=== PATIENT | female | born 1955 | race Caucasian/White ===

== ENCOUNTER → 2016-11-26 | Outpatient (CLI) | payer BC ==
[~2016-11-26] MED LIST: AMIL5TAB15 PO; AMLO-114 PO; ANAS1TAB19 PO; ATEN50TA8 PO; CALC-51 PO; CARV6.252 PO; CLON0.1T12 PO; ESCI1TAB10 PO; LORA-741 PO; MULT-1027 PO; VALS320T2 PO
[2016-11-26 14:41] VITALS: BP 130/84; PULSE 68; TEMP 36.6; O2SAT 97
--- NOTE | 2016-11-26 16:18 | Radiation Oncology Follow-Up ---
Radiation Oncology Follow-Up Date of Visit November 26, 2016. Reason For Visit One-month follow-up and cancer survivorship care plan Radiation Completion Date 10/16/16 Diagnosis (1) Breast cancer Status: Acute Onset Date: 07/09/2016 Histology Subtype: lobular Stage: l (A) Permanent Comment: Abnormal right breast mammogram 07/09/2016 Status post core needle biopsy 07/23/2016 revealing invasive lobular carcinoma grade 2 Estrogen receptor positive, progesterone receptor negative, and HER-2/suzan negative Status post lumpectomy and sentinel lymph node biopsy 08/26/2016 Stage pT1a pN0M0 Status post completion of radiation therapy 10/16/2016 received 3850 cGy, utilizing accelerated partial breast irradiation. Last Edited By: Edyta Arroyo on Oct 26, 2016 17:10 History of Present Illness Ms. Narcisa Huff is a 61-year-old female who underwent a screening mammogram on 11/2016. This was compared to previous his images most right breast and listed from 12/24/2010. There was a subtle area of architectural distortion with punctate calcifications centrally projecting in the right upper outer quadrant. This was predominantly at the 9:30 or 10 o'clock position. Left breast was unremarkable. Additional imaging was recommended. Therefore on 07/20/2016 the patient underwent spot compression views of the upper outer right breast with tomosynthesis and targeted right breast ultrasound were performed. Again there was noted a focal area of architectural distortion in the upper outer aspect of the breast adjacent to 3 small calcifications. Ultrasound of the area of interest revealed no well-defined abnormalities. These findings however were felt to be suspicious and a core biopsy was recommended. On 07/23/2016 the patient underwent biopsies of the right breast at the 10 o' clock position. The biopsies were of the area with and without calcifications. Both biopsies confirmed an invasive lobular carcinoma classic type, grade 2. The lesion was strongly ER positive, [place] negative and HER-2/suzan negative. Accession #: [id number]. The patient was seen by Dr. Winston for surgical evaluation and discussion. She recommended bilateral breast MRIs which were performed on 08/19/2016. In the left breast there were heterogeneous fibroglandular tissues with no suspicious mass or masslike enhancing lesions. There was no lymphadenopathy, no skin thickening and no nipple retraction noted. In the right breast there was a 0.4 x 0.3 x 0.7 cm linear non-mass like enhancement and mild architectural distortion at the site of the biopsy marker at the 9:00 middle depth position. This corresponded with the site of prior biopsy. There were no other masses or jej-vqbh-nwlm enhancement seen with no lymphadenopathy, skin thickening or nipple retraction appreciated. No suspicious findings were noted outside of the breast. Patient met with Dr. Winston to discuss surgical treatment options. The patient agreed to proceed with a breast conserving therapy. Therefore on 08/26/2016 the patient underwent a right needle localized lumpectomy and sentinel node biopsy with injection of lymphazurin blue dye for sentinel lymph node mapping. Histologic evaluation confirmed residual invasive lobular carcinoma, classic type, grade 2 measuring 0.1 cm in size. This was 1.6 cm from the nearest medial margin. Three sentinel lymph nodes were identified and all were negative confirmed by keratin immunohistochemistry. Final AJCC staging was pT1a pN0(sn-) ER positive, NJ negative and HER-2/suzan negative. Accession #: [id number]. Patient is scheduled to see Dr. Joni Gillis on September 24 to discuss the role of adjuvant antiestrogen therapy. We were asked to see the patient today to review with her the adjuvant radiation treatment options. It is for this reason the patient is seen in referral. She underwent a CT simulation was found to be a candidate for accelerated partial breast irradiation. Treatment was completed 10/16/2016. She received 3850 cGy. Interim History She's been doing well over this past month. She denies any changes to her breast. She is noted no masses or tenderness and no change of the axilla. She had minimal skin irritation following the completion of treatment. She was seen by Dr. Gillis and is now started anastrozole. She denies hot flashes. She has no problems with joint pain. She does note that the medication causes her to have somnolence. She takes this at night and helps her to sleep. Allergies Coded Allergies: Lisinopril (Verified Allergy, Intermediate, Unknown , 09/22/16) Home Medications Scheduled Amiloride Hcl (Amiloride Hcl), 5 MG PO DAILY Amlodipine (Norvasc), 10 MG PO DAILY Anastrozole (Arimidex), 1 TAB PO DAILY Atenolol (Tenormin), 50 MG PO BID Calcium Carbonate-Vitamin D (Calcium), 1 TAB PO BID Carvedilol (Coreg), 1 TAB PO BID Clonidine Hcl (Catapres), 1 TAB PO BID Escitalopram Oxalate (Lexapro), 1.5 TABS PO DAILY Multiple Vitamin (Multi Vitamin), 1 TAB PO DAILY Valsartan/Hctz (Diovan Hct 320MG/25MG), 1 TAB PO DAILY Scheduled PRN Lorazepam (Ativan), 0.5 MG PO TID PRN for Anxiety Review of Systems Gastrointestinal: Symptoms: WNL Oral: Symptoms: No Problems Respiratory: Symptoms: WNL Urinary: Symptoms: WNL Skin: Symptoms: No Problems Breast: Right Upper Arm Measurement: 31.5 Right Mid Arm Measurement: 26.5 Right Wrist Measurement: 16.5 Left Upper Arm Measurement: 30.5 Left Mid Arm Measurement: 26.0 Left Wrist Measurement: 16.0 Arm Dominence: Right Additional Notes: She completed a distress management report and answered "no" to all questions. Physical Exam Vital Signs Date Time Temp Pulse Resp B/P Pulse Ox O2 Delivery O2 Flow Rate FiO2 11/26/16 14:41 36.6 68 16 130/84 97 Fatigue: None General Appearance: no apparent distress Eyes: normal inspection, EOMI ENT: normal ENT inspection, hearing grossly normal Neck: no adenopathy, thyroid normal Respiratory/Chest: lungs clear, no respiratory distress, no accessory muscle use Breast: Breast examination reveals well-healed incisions of the right breast. There are no masses or tenderness no axillary adenopathy. There are no nipple changes and no skin retractions. There is no edema. There are very minimal fibrous changes in the area of the incision Using the [place] score cosmesis she has a excellent outcome. The left pressure no masses or tenderness and no axillary adenopathy. Cardiovascular: regular rate, rhythm, no gallop, no murmur Abdomen: non tender, soft, no organomegaly Extremities: no pedal edema Neurologic/Psychiatric: no motor/sensory deficits, alert, normal mood/affect Skin: warm/dry Assessment & Plan Plan: Continue follow-up with Dr. Winston, Dr. Gillis, and her primary care provider. She continues on the anastrozole. Today we completed a cancer survivorship care plan. Copy of the document was given to the patient. Mammography has already been scheduled at [facility] in January. We reviewed that these will be digital diagnostic mammograms. The usual recommendation is continued imaging every 6 months for 2 years. We'll follow the recommendations of the radiologist. We asked her to return to our office in 6 months. She may call if she has any questions or concerns in the interim. Total Time In Follow-Up I spent 20 minutes speaking to the patient and performed an examination. I spent 20 minutes reviewing information, completing the survivorship document, and completing this note. Copy To Kim Winston MD; Joni Gillis MD; Dali Mason PA-C Problem Qualifiers (1) Breast cancer: Breast location: upper outer quadrant of breast Estrogen receptor status: positive Patient sex: female Laterality: right Qualified Codes: C50.411 - Malignant neoplasm of upper-outer quadrant of right female breast; Z17.0 - Estrogen receptor positive status [ER+]
== END | disposition home or self-care (01) ==
LOC: C.ONC 14:28
PROVIDERS: ATTEND Physician Assistant Medical
DX: Z08 Encounter for follow-up examination after completed treatment for malignant neoplasm (principal); Z92.3 Personal history of irradiation; Z85.3 Personal history of malignant neoplasm of breast

== ENCOUNTER → 2017-06-02 | Outpatient (CLI) | payer BC ==
[2017-06-02 13:38] VITALS: BP_SYST 179; BP_SYST 183; BP_DIAS 115; BP_DIAS 125; PULSE 104; TEMP 36.8; O2SAT 96
--- NOTE | 2017-06-02 15:14 | Radiation Oncology Follow-Up ---
Radiation Oncology Follow-Up Date of Visit Jun 02, 2017. Reason For Visit Annual follow-up Radiation Completion Date APB 10/16/16 Diagnosis (1) Breast cancer Status: Resolved Onset Date: 07/09/2016 Histology Subtype: lobular Stage: l (A) Permanent Comment: Abnormal right breast mammogram 07/09/2016 Status post core needle biopsy 07/23/2016 revealing invasive lobular carcinoma grade 2 Estrogen receptor positive, progesterone receptor negative, and HER-2/suzan negative Status post lumpectomy and sentinel lymph node biopsy 08/26/2016 Stage pT1a pN0M0 Status post completion of radiation therapy 10/16/2016 received 3850 cGy, utilizing accelerated partial breast irradiation. Last Edited By: Edyta Arroyo on Oct 26, 2016 17:10 History of Present Illness Ms. Narcisa Huff underwent a screening mammogram on 07/09/2016. This was compared to previous his images most right breast and listed from 12/24/2010. There was a subtle area of architectural distortion with punctate calcifications centrally projecting in the right upper outer quadrant. This was predominantly at the 9:30 or 10 o'clock position. Left breast was unremarkable. Additional imaging was recommended. Therefore on 07/20/2016 the patient underwent spot compression views of the upper outer right breast with tomosynthesis and targeted right breast ultrasound were performed. Again there was noted a focal area of architectural distortion in the upper outer aspect of the breast adjacent to 3 small calcifications. Ultrasound of the area of interest revealed no well-defined abnormalities. These findings however were felt to be suspicious and a core biopsy was recommended. On 07/23/2016 the patient underwent biopsies of the right breast at the 10 o' clock position. The biopsies were of the area with and without calcifications. Both biopsies confirmed an invasive lobular carcinoma classic type, grade 2. The lesion was strongly ER positive, [place] negative and HER-2/suzan negative. Accession #: [id number]. The patient was seen by Dr. Winston for surgical evaluation and discussion. She recommended bilateral breast MRIs which were performed on 08/19/2016. In the left breast there were heterogeneous fibroglandular tissues with no suspicious mass or masslike enhancing lesions. There was no lymphadenopathy, no skin thickening and no nipple retraction noted. In the right breast there was a 0.4 x 0.3 x 0.7 cm linear non-mass like enhancement and mild architectural distortion at the site of the biopsy marker at the 9:00 middle depth position. This corresponded with the site of prior biopsy. There were no other masses or zfb-auqi-svxe enhancement seen with no lymphadenopathy, skin thickening or nipple retraction appreciated. No suspicious findings were noted outside of the breast. Patient met with Dr. Winston to discuss surgical treatment options. The patient agreed to proceed with a breast conserving therapy. Therefore on 08/26/2016 the patient underwent a right needle localized lumpectomy and sentinel node biopsy with injection of lymphazurin blue dye for sentinel lymph node mapping. Histologic evaluation confirmed residual invasive lobular carcinoma, classic type, grade 2 measuring 0.1 cm in size. This was 1.6 cm from the nearest medial margin. Three sentinel lymph nodes were identified and all were negative confirmed by keratin immunohistochemistry. Final AJCC staging was pT1a pN0(sn-) ER positive, [place] negative and HER-2/suzan negative. Accession #: [id number]. Patient is scheduled to see Dr. Joni Gillis on September 24 to discuss the role of adjuvant antiestrogen therapy. We were asked to see the patient today to review with her the adjuvant radiation treatment options. It is for this reason the patient is seen in referral. She underwent a CT simulation was found to be a candidate for accelerated partial breast irradiation. Treatment was completed 10/16/2016. She received 3850 cGy. Interim History She is noted no masses to her breast. She did develop pain of her right lateral ribs and was seen by medical oncology. She noted this after running the lawnmower and pushing for a long period of time. X-rays were obtained and she reports that these were negative. She is up-to-date on mammography. She has noted no swelling of her arm. She is on Arimidex and denies side effects. Allergies Coded Allergies: Lisinopril (Verified Allergy, Intermediate, Unknown , 09/22/16) Home Medications Scheduled Amiloride Hcl (Amiloride Hcl), 5 MG PO DAILY Amlodipine (Norvasc), 10 MG PO DAILY Anastrozole (Arimidex), 1 TAB PO DAILY Atenolol (Tenormin), 50 MG PO BID Calcium Carbonate-Vitamin D (Calcium), 1 TAB PO BID Carvedilol (Coreg), 1 TAB PO BID Clonidine Hcl (Catapres), 1 TAB PO BID Escitalopram Oxalate (Lexapro), 1.5 TABS PO DAILY Multiple Vitamin (Multi Vitamin), 1 TAB PO DAILY Valsartan/Hctz (Diovan Hct 320MG/25MG), 1 TAB PO DAILY Scheduled PRN Lorazepam (Ativan), 0.5 MG PO TID PRN for Anxiety Review of Systems Gastrointestinal: Symptoms: WNL Oral: Symptoms: No Problems Respiratory: Symptoms: WNL Urinary: Symptoms: WNL Skin: Symptoms: No Problems Breast: Right Upper Arm Measurement: 34.5 Right Mid Arm Measurement: 26.5 Right Wrist Measurement: 16.5 Left Upper Arm Measurement: 32.0 Left Mid Arm Measurement: 26.0 Left Wrist Measurement: 16.0 Arm Dominence: Right Physical Exam Vital Signs Date Time Temp Pulse Resp B/P (MAP) Pulse Ox O2 Delivery O2 Flow Rate FiO2 06/02/17 13:38 36.8 104 16 183/115 96 179/125 Fatigue: None General Appearance: no apparent distress Eyes: normal inspection, EOMI ENT: normal ENT inspection, hearing grossly normal Neck: no adenopathy, thyroid normal Respiratory/Chest: lungs clear, no respiratory distress, no accessory muscle use Breast: Breast examination reveals well-healed incisions of the right breast. There are no masses or tenderness no axillary adenopathy. She has no skin retractions or nipple changes. Using the [place] score cosmesis she has a excellent outcome. The left breast showed no masses or tenderness no axillary adenopathy. Cardiovascular: regular rate, rhythm, no gallop, no murmur Extremities: no pedal edema Neurologic/Psychiatric: no motor/sensory deficits, alert, normal mood/affect Skin: warm/dry Pain Management Pain Management Plan She previously had pain in the lateral ribs and this is now resolved. She requires no pain management. Additional Studies 05/07/2017 4:48 PM - Interface, Rad In Narrative EXAM RIBS-UNILATERAL INCLUDING PA CHEST (MINIMUM 3 VIEWS) - 05/06/2017 3:56 pm HISTORY pain right lower rib cage TECHNIQUE Standard views COMPARISON None. FINDINGS The right ribs appear to be intact. There is no convincing evidence for fracture or focal bony pathology. The heart is borderline in size. There is no acute pulmonary disease seen. thoracic soft tissues are within normal limits for age. IMPRESSION The right ribs appear to be intact. Authenticated By Authenticating Date Authenticating Time Reading Providers(s) LOU HENRY MD 05-07-2017 16:48 LOU HENRY MD Date and Time Status Provider Status Resulted: 05/07/2017 4:48 PM Final result Ordered Results MAMMOGRAM, DIAGNOSTIC, UNILAT [G0206.3] (Spec. #[id number]) (Order [id number]) Date/Time of Imaging Study Study Completed: 01/18/2017 12:56 PM [employer] PACS Image Narrative Comparison is made to images from 08/26/2016 and images from 07/23/2016 and images from 07/20/2016 and images from 07/08/2016 (bilateral) and images from 12/24/2010 (bilateral) and images from 12/23/2009 (bilateral). Right Breast Findings: There are scattered fibroglandular densities (25% - 50% fibroglandular). New baseline post lumpectomy, SLNB, and XRT. Taking tamoxifen. Expected post therapy changes are present. There are no suspicious calcifications, masses, or other abnormalities. Authenticated By Authenticating Date Authenticating Time Reading Providers(s) CHANEL HARRINGTON MD 01-18-2017 13:28 CHANEL HARRINGTON MD IMPRESSION: RIGHT BREAST: Findings are probably benign. A short interval follow-up is recommended in 6 months. Due for screening exam of the left breast at that time. OVERALL ASSESSMENT - CATEGORY 3 - PROBABLY BENIGN END OF IMPRESSION Note: Approximately 10% of breast cancers are not detected on mammography. A negative mammographic report should not delay biopsy if a clinically suggestive mass is present. This mammogram has been analyzed with the computer aided detection system. Tomosynthesis was done. This notice contains the results of your recent mammogram, including information about breast density. If your mammogram shows that your breast tissue is dense, you should know that dense breast tissue is a common finding and is not abnormal. Statistics show many women could have dense or highly dense breasts. Dense breast tissue can make it harder to find cancer on a mammogram and may be associated with an increased risk of cancer. This information about the result of your mammogram is given to you to raise your awareness and to inform your conversations with your physician. Together, you can decide which screening options are right for you, based on your mammogram results, individual risk factors or physical examination. A report of your results was sent to your physician. Your mammographic breast density on today's study is described above. There are four categories of breast density on mammography. Fatty breasts and those with scattered fibroglandular tissue are not considered dense. Heterogeneously dense or extremely dense tissue is considered "dense". Please understand that assessment of breast density may vary from year to year. Assessment & Plan Plan: Continue with scheduled mammography. She has a mammogram scheduled for . He'll continue regular follow-up with Dr. Gillis and Dr. Winston. She continues on Arimidex. Continue follow-up with her primary care provider. We discussed the elevated blood pressure. She has "whitecoat syndrome". She does have a blood pressure monitor at home. I've asked her to check this on a daily basis. She should make an appointment to see her physician if it remains greater than 140/90. She also was overdue for her blood pressure medication when she was seen in the office today. We asked her to return to our office in 1 year. She may call if she has any questions or concerns. Total Time In Follow-Up I spent 20 minutes speaking to the patient performing examination. I spent 15 minutes reviewing information in completing this note. Copy To Kim Winston MD; Joni Gillis MD; Dali Mason PA-C Problem Qualifiers (1) Breast cancer: Breast location: upper outer quadrant of breast Estrogen receptor status: positive Patient sex: female Laterality: right Qualified Codes: C50.411 - Malignant neoplasm of upper-outer quadrant of right female breast; Z17.0 - Estrogen receptor positive status [ER+]
== END | disposition home or self-care (01) ==
LOC: C.ONC 13:34
PROVIDERS: ATTEND Physician Assistant Medical
DX: Z08 Encounter for follow-up examination after completed treatment for malignant neoplasm (principal); Z92.3 Personal history of irradiation; Z85.3 Personal history of malignant neoplasm of breast